=== PATIENT | female | born 1955 | race Caucasian/White ===

== ENCOUNTER 2025-05-01 13:50 | Outpatient (AMB) | payer MEDICARE, SELFPAY ==
[2025-05-01 14:17] VITALS: BMI 19.7
--- NOTE | 2025-05-01 14:17 | A.PHYSOV ---
Vital Signs 05/01/25 14:17 Height 5 ft 4 in Weight 115 lb BMI 19.7 Intake Visit Reasons: NPV self ref- neck pain Intake Note: Patient is a 69 year old female here for new patient office visit. Patient presents with Lower back pain. Patient states this pain is on the left side and does not travel. Patient states pain has been for 2 years and she has had treatment at the [facility] in [facility] for treatment. Anesthesiology Tech Required: No Allergies No Known Allergies Allergy (Verified 05/01/25 14:20) HPI Comments Details: History of Present Illness The patient is a 69 year old female presenting for evaluation and management of back pain. She reports having received injections at the [facility] approximately two years ago, which were unsuccessful. The patient's pain is localized to the left side of her thoracic back and does not radiate. She has no history of kidney stones. Her current medications include Tylenol and ibuprofen, and she has prescriptions for methocarbamol and diclofenac, though she does not require refills at this time. Patient did undergo 2 epidural injections without relief not performed in our office. She has a pain level today of 7/10 worse with activity. Patient has failed conservative treatment. I reviewed the referring provider's no prior to consultation. Pain Description - Location: Pain is on the left side, localized to the thoracic spine. - Character: The pain is described as being right in a specific spot. - Radiation: The pain does not wrap around. - Exacerbating Factors: Pain is elicited with rotation. - Alleviating Factors: None reported. Results - MRI lumbar spine (10/30/2023): - L3-L4: Moderate canal stenosis and mild bilateral neuroforaminal stenosis. - L4-L5: Mild canal stenosis and mild bilateral neuroforaminal stenosis with diffuse disc bulge and facet hypertrophy. - L5-S1: Mild left neuroforaminal stenosis from disc bulging and facet hypertrophy. - MRI thoracic spine (10/30/2023): - T10-T11: Broad-based disc bulge causing mild to moderate spinal canal stenosis. - T9-T10 and T10-T11: Mild neuroforaminal narrowing bilaterally. - Impression: Multilevel degenerative changes. [facility] Social History (Updated 05/01/25 @ 14:21 by Clara Piña MA) Alcohol intake: current Alcohol intake frequency: does not drink Patient Tobacco Use Status: Former Tobacco user Review of Systems Narrative Review of Systems - Musculoskeletal: Reports localized pain in the left thoracic back. - Genitourinary: Denies a history of kidney stones. - All other systems reviewed are negative. Physical Exam Exam Exam: Physical Exam - General: Patient is flexible. - Musculoskeletal/Spine: Tenderness to palpation over the left thoracic spine at approximately the T10 level. - Spinal range of motion is full with flexion and extension without eliciting pain. - Rotation elicits pain. - Respiratory: Chest rises and falls symmetrically. No scapular winging. Vital Signs: BMI result Body Mass Index 19.7 Assessment & Plan Assessment & Plan (1) Thoracic radiculopathy: Code(s): M54.14 - Radiculopathy, thoracic region Category: Medical (2) Thoracic spondylosis: Code(s): M47.814 - Spondylosis without myelopathy or radiculopathy, thoracic region Category: Medical Plan Pain Management - Affect: Not discussed. - Analgesia: The patient currently uses Tylenol and ibuprofen for pain and has prescriptions for methocarbamol and diclofenac, though she states she is trying not to take any medicine. - Adverse Effects: She notes that Tylenol can irritate her stomach. - Activities of Daily Living: The patient is noted to be flexible, but pain is produced with rotation. - Aberrant Drug Related Behaviors: None noted; the patient expresses a desire to minimize medication use. Plan Patient was informed and verbally consented to the use of an ambient scribe for clinic note documentation during this visit. 1. Thoracic Back Pain The patient's left-sided pain is localized to the thoracic spine, correlating with MRI findings of a broad-based disc bulge causing mild to moderate spinal canal stenosis and mild neuroforaminal narrowing at T10-11. Physical exam confirms tenderness at this level. A left T10-11 transforaminal injection will be ordered. The patient has opted for sedation during the procedure. For analgesia, Tylenol 500 mg will be prescribed to be taken three times a day, with the option to take two tablets for severe pain. She has been advised to avoid alcohol consumption with Tylenol. Gabapentin was discussed as a potential future option for nerve pain if current therapies are ineffective. The patient will follow-up in three weeks after the injection to assess for improvement. Discussion Notes I reviewed the patient's recent MRI findings of her thoracic and lumbar spine and explained that her symptoms of left-sided thoracic pain align with the findings at the T10-11 level, specifically the disc bulge and neuroforaminal narrowing. I recommended a left T10-11 transforaminal injection to target this area. I informed her that the procedure can be painful, as the needle is placed near the nerve root and can potentially tap the nerve, magnifying her pain temporarily. After discussion, she elected to receive sedation for the procedure. We discussed her current medication regimen, and I will prescribe Tylenol 500 mg for pain management, with instructions for use. I advised her to avoid alcohol while taking Tylenol due to stomach irritation. We agreed to hold her other medications for now. I informed the patient that our office will seek insurance authorization for the injection and will contact her for scheduling. A follow-up visit is scheduled for three weeks after the procedure to assess the outcome. Patient Instructions - We will schedule you for a left-sided T10-[address] Minor for your back pain. - You have chosen to be sedated ( put to sleep ) for the procedure for comfort. - Our office will get approval from your insurance and will then call you to schedule the appointment. - You can take Tylenol 500 mg for pain. - You may take one tablet every 6 to 8 hours, or two tablets up to three times a day if the pain is severe. - Do not drink alcohol while taking Tylenol, as it can be hard on your stomach. - We will have you follow up in the clinic three weeks after your injection to see how you are doing. Orders: Referrals Physiatry Procedure Notification M47.814 - Spondylosis without myelopathy or radiculopathy, thoracic region, M54.14 - Radiculopathy, thoracic region Coding Level of Care Code Tele New Pt Level 4 (70183) Diagnoses Thoracic radiculopathy M54.14 Thoracic spondylosis M47.814
--- OUTSIDE RECORDS SUMMARY | 2025-05-01 22:36 | XMS_ITS | Clinical Summary ---
Author Organization [facility] Address [address] [place] [address] Phone Care Team Providers Care Pre Owned Sales Consultant Name Role Phone Physician, Pcp Unknown Primary Care Provider Bridget vailable Allergies No known active allergies Medications ondansetron ODT (ZOFRAN-ODT) 4 mg disintegrating tablet Dissolve 1 tablet (4 mg total) on top of the tongue every 8 (eight) hours if needed for nausea or vomiting. 12 tablet 5 Active amoxicillin-clavul anate (AUGMENTIN) 875-125 mg per tablet Take 1 tablet by mouth every 12 (twelve) hours for 7 days. 14 tablet 5 04/24/20 25 loperamide (IMODIUM) 2 mg capsule Take 1 capsule (2 mg total) by mouth 4 (four) times a day if needed for diarrhea for up to 3 days. 12 capsule 5 04/20/20 25 Encounters Date Type Department Care Team Description 04/17/2025 9:13 AM EST - 04/17/2025 2:02 PM EST Emergency [facility] Emergency [address] [place] [address] Colitis (Primary Dx); Nausea vomiting and diarrhea; Hypomagnesemia Discharge Disposition: Home or Self Care from Last 3 Months Social History Tobacco Use Types Packs/Day Years Used Date Smoking Tobacco: Never Tobacco Cessation:Counseling Given: Not Answered Comments Unknown Sex and Gender Information Value Date Recorded Sex Assigned at Not on file Legal Sex Female 1:59 PM EDT Gender Identity Not on file Sexual Orientation Not on file Last Filed Vital Signs Vital Sign Reading Time Taken Comments Blood Pressure 138/84 04/17/2025 9:47 AM EST Pulse 84 04/17/2025 1:58 PM EST Temperature 36.7 C (98 F) 04/17/2025 1:58 PM EST Respiratory Rate 18 04/17/2025 1:58 PM EST Oxygen Saturation 100% 04/17/2025 1:58 PM EST Inhaled Oxygen Concentration - - Weight 68 kg (150 lb) 04/17/2025 9:12 AM EST Height 162.6 cm (5' 4 ) 04/17/2025 9:12 AM EST Body Mass Index 25.75 04/17/2025 9:12 AM EST Plan of Treatment Upcoming Encounters Date Type Department Care Team (Late st Contact Info) Description 07/27/2025 3:00 PM EST Office Visit Internal Medicine - [place] [address] [place] [address] Azra Guzmán MD [address] [place] [address] Health Maintenance Due Date Last Done Comments Breast Cancer Screening 1955 Colorectal Cancer Screening: Colonoscopy 1955 DTaP,Tdap,and Td Vaccines (1 - Tdap) 1976 Pneumococcal Vaccine: 50+ Ye ars (1 of 1 - PCV) 10/12/2007 Zoster Vaccines (1 of 2) 10/12/2007 Depression Screening 05/25/2024 COVID-19 Vaccine (1 - 2024-2 6 season) 2025 Influenza Vaccine (#1) 2025 Falls Risk Assessment 03/14/2025 Hepatitis C Screening 03/14/2025 Medicare Annual Wellness Visit 03/14/2025 Osteoporosis Screening (Bone Density Screening) 03/14/2025 Social Influencers of Health Screening 03/14/2025 RSV Immunization Adult Patie nts (1 - 1-dose 75+ series) 2032 HIB Vaccines Aged Out No longer eligi ble based on patient's age to complete this topic HPV Vaccines Aged Out No longer eligi ble based on patient's age to complete this topic Hepatitis A Vaccines Aged Out No long er eligible based on patient's age to complete this topic Hepatitis B Vaccines Aged Out No long er eligible based on patient's age to complete this topic IPV Vaccines Aged Out No longer eligi ble based on patient's age to complete this topic MMR Vaccines Aged Out No longer eligi ble based on patient's age to complete this topic Meningococcal ACWY Vaccine Aged Out N o longer eligible based on patient's age to complete this topic Meningococcal B Vaccine Aged Out No l onger eligible based on patient's age to complete this topic RSV Immunization Patients Un jesusita 20 months Aged Out No longer eligible b ased on patient's age to complete this topic Varicella Vaccines Aged Out No longer eligible based on patient's age to complete this topic Procedures Procedure Name Priority Date/Time Associated Diagnosis Comments CT ABDOMEN PELVIS W CONTRAST STAT 04/17/2025 12:59 PM EST MAGNESIUM STAT 04/17/2025 11:36 AM EST LIPASE STAT 04/17/2025 11:36 AM EST COMPREHENSIVE METABOLIC PANEL STAT 04/17/2025 11:36 AM EST URINALYSIS WITH REFLEX MICROSCOPIC STAT 04/17/2025 9:50 AM EST URINALYSIS WITH REFLEX MICROSCOPIC STAT 04/17/2025 9:50 AM EST CBC WITH AUTO DIFFERENTIAL STAT 04/17/2025 9:47 AM EST LACTATE, WITH REFLEX STAT 04/17/2025 9:47 AM EST CBC AND DIFFERENTIAL STAT 04/17/2025 9:47 AM EST from Last 3 Months Results * CT Abdomen Pelvis w Contrast (04/17/2025 12:59 PM EST) Anatomical Region Laterality Modality Body Computed Tomogra phy 04/17/2025 1:04 PM EST Impressions 04/17/2025 1:14 PM EST Infectious or inflammatory enterocolitis. No abscess or free air. -------- FINAL REPORT -------- Dictated By: JUANA GAMBOA Dictated Date: 04/17/2025 13:04 ET Assigned Physician: JUANA GAMBOA Reviewed and Electronically Signed By: JUANA GAMBOA Signed Date: 04/17/2025 13:14 ET Workstation ID: [id number] Transcribed By: Self Edit Transcribed Date: 04/17/2025 13:04 ET Narrative 04/17/2025 1:14 PM EST PROCEDURE: CT ABDOMEN/PELVIS INDICATION: Pain TECHNIQUE: CT of the abdomen and pelvis following the intravenous administration of 90cc Isovue 370. Multiplanar reformats. The examination was performed utilizing dose reduction techniques. Total DLP 371 COMPARISON: No priors available. FINDINGS: LOWER THORAX: Bibasilar atelectasis. HEPATOBILIARY: No focal liver lesions. No cholelithiasis or biliary duct dilatation. SPLEEN: No splenomegaly. PANCREAS: No focal mass or ductal dilatation. ADRENALS: No nodules. KIDNEYS/URETERS: No hydronephrosis, stones, or solid mass. PELVIC ORGANS/BLADDER: Hysterectomy. Bladder is decompressed. No adnexal mass or pelvic lymphadenopathy. PERITONEUM / RETROPERITONEUM: No ascites, fluid collection, or free air. No retroperitoneal lymphadenopathy. VESSELS: Portal vein is patent. Abdominal aorta is normal in size. GI TRACT: Wall thickening throughout the duodenum, small bowel, and at the proximal colon. Normal appendix. Postoperative changes at the gastric antrum. No bowel obstruction. BONES AND SOFT TISSUES: Right hip arthroplasty. Superficial soft tissues are within normal limits. Degenerative changes throughout the spine. Procedure Note Juana Gamboa MD - 04/17/2025 PROCEDURE: CT ABDOMEN/PELVIS INDICATION: Pain TECHNIQUE: CT of the abdomen and pelvis following the intravenousadministration of 90cc Isovue 370. Multiplanar reformats. The examinationwas performed utilizing dose reduction techniques. Total DLP 371 COMPARISON: No priors available. FINDINGS: LOWER THORAX: Bibasilar atelectasis. HEPATOBILIARY: No focal liver lesions. No cholelithiasis or biliary ductdilatation. SPLEEN: No splenomegaly. PANCREAS: No focal mass or ductal dilatation. ADRENALS: No nodules. KIDNEYS/URETERS: No hydronephrosis, stones, or solid mass. PELVIC ORGANS/BLADDER: Hysterectomy. Bladder is decompressed. No adnexalmass or pelvic lymphadenopathy. PERITONEUM / RETROPERITONEUM: No ascites, fluid collection, or free air.No retroperitoneal lymphadenopathy. VESSELS: Portal vein is patent. Abdominal aorta is normal in size. GI TRACT: Wall thickening throughout the duodenum, small bowel, and at theproximal colon. Normal appendix. Postoperative changes at the gastricantrum. No bowel obstruction. BONES AND SOFT TISSUES: Right hip arthroplasty. Superficial soft tissuesare within normal limits. Degenerative changes throughout the spine. IMPRESSION: Infectious or inflammatory enterocolitis. No abscess or free air. -------- FINAL REPORT -------- Dictated By: JUANA GAMBOA Dictated Date: 04/17/2025 13:04 ET Assigned Physician: JUANA GAMBOA Reviewed and Electronically Signed By: JUANA GAMBOA Signed Date: 04/17/2025 13:14 ET Workstation ID: [id number] Transcribed By: Self Edit Transcribed Date: 04/17/2025 13:04 ET [address] [facility] IMG CT PROCEDURES Final Resu lt * (ABNORMAL) Magnesium (04/17/2025 11:36 AM EST) [facility] Magnesium 1.6(L) 1.9 - 2.6 mg/dL 04/17/2025 12:39 PM EST [facility] Blood Venous blood specimen / Unknown Venipuncture / Unknown 04/17/2025 11:36 AM EST 04/17/2025 12:02 PM EST [facility] BLOOD ORDERABLES Final R esult [facility] [address] [place] [address], * Lipase (04/17/2025 11:36 AM EST) [facility] Lipase 27 12 - 53 unit/L 04/17/2025 12:[address] [facility] Blood Venous blood specimen / Unknown Venipuncture / Unknown 04/17/2025 11:36 AM EST 04/17/2025 12:02 PM EST us Alex [facility] BLOOD ORDERABLES Final R esult [facility] [address] [place] [address], * (ABNORMAL) Comprehensive metabolic panel (04/17/2025 11:36 AM EST) Sodium 140 133 - 145 mmol/L 04/17/2025 12:[address] [facility] Potassium 3.8 3.5 - 5.5 mmol/L 04/17/2025 12:[address] [facility] Chloride 103 96 - 110 mmol/L 04/17/2025 12:[address] [facility] CO2 26 21 - 32 mmol/L 04/17/2025 12:[address] [facility] Anion Gap 11 3 - 11 04/17/2025 12:[address] [facility] Glucose 84 70 - 100 mg/dL 04/17/2025 12:[address] [facility] BUN 22 5 - 25 mg/dL 04/17/2025 12:[address] [facility] Creatinine 1.04 0.50 - 1.10 mg/dL 04/17/2025 12:[address] [facility] eGFR 59(L) >=60 mL/min/1. 73m2 04/17/2025 12:[address] [facility] Comment:Calculation based on the Chronic Kidney Disease Epidemiology Collaboration (CKD-EPI) equation refit without adjustment for race. BUN/Creatinine Ratio 21.2 04/17/2025 12:[address] [facility] Calcium 8.6 8.5 - 10.5 mg/dL 04/17/2025 12:[address] [facility] AST (SGOT) 36 10 - 42 unit/L 04/17/2025 12:[address] [facility] ALT (SGPT) 17 10 - 60 unit/L 04/17/2025 12:[address] [facility] Alkaline Phosphatase 88 42 - 121 unit/L 04/17/2025 12:[address] [facility] Total Protein 5.6(L) 6.0 - 8.0 g/dL 04/17/2025 12:[address] [facility] Albumin 3.4 3.2 - 5.0 g/dL 04/17/2025 12:[address] [facility] Total Bilirubin 0.3 0.0 - 1.4 mg/dL 04/17/2025 12:[address] [facility] Blood Venous blood specimen / Unknown Venipuncture / Unknown 04/17/2025 11:36 AM EST 04/17/2025 12:02 PM EST us [facility] BLOOD ORDERABLES Final R esult [facility] [address] [place] [address], * (ABNORMAL) Urinalysis with reflex microscopic (04/17/2025 9:50 AM EST) Specific Hasty Urine 1.027 1.003 - 1.030 LAB URINALYSIS - AUTOMATED METHOD 04/17/2025 10:[address] [facility] pH, Urine 6.0 5.0 - 8.0 pH LAB URINALYSIS - AUTOMATED METHOD 04/17/2025 10:[address] [facility] Leukocytes, Urine Trace(A) Negative LAB URINALYSIS - AUTOMATED METHOD 04/17/2025 10:[address] [facility] Nitrite, Urine Negative Negative LAB URINALYSIS - AUTOMATED METHOD 04/17/2025 10:[address] [facility] Protein, Urine 300(A) <=Trace mg/dL LAB URINALYSIS - AUTOMATED METHOD 04/17/2025 10:[address] [facility] Glucose, Urine Negative Negative mg/dL LAB URINALYSIS - AUTOMATED METHOD 04/17/2025 10:[address] [facility] Ketones, Urine 15(A) Negative mg/dL LAB URINALYSIS - AUTOMATED METHOD 04/17/2025 10:[address] [facility] Urobilinogen , Urine 1.0 0.2 - 1.0 mg/dL LAB URINALYSIS - AUTOMATED METHOD 04/17/2025 10:[address] [facility] Bilirubin, Urine Small(A) Negative LAB URINALYSIS - AUTOMATED METHOD 04/17/2025 10:[address] [facility] Blood, Urine Negative Negative LAB URINALYSIS - AUTOMATED METHOD 04/17/2025 10:[address] [facility] RBC, Urine 2 0 - 4 /HPF 04/17/2025 10:[address] [facility] WBC, Urine 10(H) 0 - 4 /HPF 04/17/2025 10:[address] [facility] Squamous Epithelial, Urine 10 0 - 60 /LPF 04/17/2025 10:[address] [facility] Crystals, Urine Light Calcium Oxalate crystals. /LPF 04/17/2025 10:[address] [facility] Bacteria, Urine Few(A) Negative /HPF 04/17/2025 10:[address] [facility] Hyaline Casts, Urine 4(H) 0 - 3 /LPF 04/17/2025 10:[address] [facility] Urine Urine specimen obtained by clean catch procedure / Unknown Non-blood Collection / Unknown 04/17/2025 9:50 AM EST 04/17/2025 9:59 AM EST us [facility] URINE ORDERABLES Final R esult Performing Organization Address City/[facility]/ZIP Co de Phone Number [facility] [address] [place] [address], [place] [phone] * Lactate, with reflex (04/17/2025 9:47 AM EST) LACTIC ACID 1.7 0.4 - 2.0 mmol/L 04/17/2025 10:[address] [facility] Blood Venous blood specimen / Unknown Venipuncture / Unknown 04/17/2025 9:47 AM EST 04/17/2025 9:59 AM EST us [facility] BLOOD ORDERABLES Final R esult Performing Organization Address City/[facility]/ZIP Co de Phone Number [facility] [address] [place] [address], [place] [phone] * (ABNORMAL) CBC auto differential (04/17/2025 9:47 AM EST) Pathologist [facility] WBC 6.7 4.8 - 10.8 K/mcL LAB HEMETOLOGY METHOD 04/17/2025 10:[address] [facility] RBC 4.90(H) 3.80 - 4.80 M/mcL LAB HEMETOLOGY METHOD 04/17/2025 10:[address] [facility] Hemoglobin 14.8 11.5 - 16.0 g/dL LAB HEMETOLOGY METHOD 04/17/2025 10:[address] [facility] Hematocrit 43.8 35.0 - 47.0 % LAB HEMETOLOGY METHOD 04/17/2025 10:[address] [facility] MCV 89.2 79.0 - 98.0 FL LAB HEMETOLOGY METHOD 04/17/2025 10:[address] [facility] MCH 30.1 27.0 - 32.0 pcg LAB HEMETOLOGY METHOD 04/17/2025 10:[address] [facility] MCHC 33.8 32.0 - 37.0 g/dL LAB HEMETOLOGY METHOD 04/17/2025 10:[address] [facility] RDW 12.8 11.0 - 15.0 % LAB HEMETOLOGY METHOD 04/17/2025 10:[address] [facility] Platelets 278 130 - 400 K/mcL LAB HEMETOLOGY METHOD 04/17/2025 10:[address] [facility] MPV 9.5 7.0 - 11.0 FL LAB HEMETOLOGY METHOD 04/17/2025 10:[address] [facility] NRBC 0.0 <1.0 % LAB HEMETOLOGY METHOD 04/17/2025 10:[address] [facility] NRBC Absolute 0.00 <0.10 K/mcL LAB HEMETOLOGY METHOD 04/17/2025 10:[address] [facility] Neutrophils Relative 75.9 % LAB HEMETOLOGY METHOD 04/17/2025 10:[address] [facility] Lymphocytes Relative 13.8 % LAB HEMETOLOGY METHOD 04/17/2025 10:[address] [facility] Monocytes Relative 9.2 % LAB HEMETOLOGY METHOD 04/17/2025 10:[address] [facility] Eosinophils Relative 0.3 % LAB HEMETOLOGY METHOD 04/17/2025 10:[address] [facility] Basophils Relative 0.5 % LAB HEMETOLOGY METHOD 04/17/2025 10:[address] [facility] Immature Granulocytes Relative 0.3 % LAB HEMETOLOGY METHOD 04/17/2025 10:03 AM EST [facility] Neutrophils Absolute 5.05 1.50 - 7.00 K/mcL LAB HEMETOLOGY METHOD 04/17/2025 10:[address] [facility] Lymphocytes Absolute 0.92(L) 1.00 - 5.00 K/mcL LAB HEMETOLOGY METHOD 04/17/2025 10:03 AM EST [facility] Monocytes Absolute 0.61 0.20 - 1.00 K/mcL LAB HEMETOLOGY METHOD 04/17/2025 10:[address] [facility] Eosinophils Absolute 0.02 0.00 - 0.50 K/mcL LAB HEMETOLOGY METHOD 04/17/2025 10:[address] [facility] Basophils Absolute 0.03 0.00 - 0.20 K/mcL LAB HEMETOLOGY METHOD 04/17/2025 10:03 AM [facility] Immature Granulocytes Absolute 0.02 0.00 - 0.03 K/mcL LAB HEMETOLOGY METHOD 04/17/2025 10:03 AM [facility] Blood Venous blood specimen / Unknown Venipuncture / Unknown 04/17/2025 9:47 AM EST 04/17/2025 9:59 AM EST us [facility] BLOOD ORDERABLES Final R esult [facility] [address] [place] [address], [place] [phone] from Last 3 [place] [id number] [place] [id number] [place] [address] [place] [address] Care Teams Pre Owned Sales Consultant Relationship Specialty Start Date End Date Physician, Pcp Unknown PCP - General 04/17/25
--- OUTSIDE RECORDS SUMMARY | 2025-05-01 22:36 | XMS_ITS | Patient Health Record ---
Author Organization [facility] Address [address] [place] [address] Care Team Providers Care Lead Machinist Name Role Phone AriasKain Primary Care Provider Jim Sellers Unavailable [phone] Ramona Arita MD Unavailable Reason For Referral No Information Medications Medication SIG (Take, Route, Frequency, Duration) Notes Start Date End Date Status Zoloft 100 MG Tablet 1 tablet Orally Once a day Active Azmacort cream as directed/as needed Active Thalomid 50 MG Capsule Orally Active Meloxicam 15 MG Tablet 1 tablet Orally O nce a day; Duration: 30 day(s) 05/29/2015 Active Relpax 40 MG Tablet 1 tablet Orally prn migraine Active Zestril 20 MG Tablet 1 tablet Orally Once a day Active Treximet 85-500 MG Tablet 1 tablet Orall y prn migraine Active Ultram 50 MG Tablet 1 tablet Orally prn Active Premarin 0.625 MG/GM Cream Vaginal Active Social History Social History Drugs/Alcohol: Social Info Question Answer Notes Drugs- Has the patient used drugs other than those for medical reasons in the past 12 months? 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 Tobacco Use: Tobacco Use/Smoking Are you a: former smoker , How long has it been since you last smoked?: 1-5 years Problems Problem Type SNOMED Code ICD Code Onset Dates Problem Status W/U Status Risk Notes Problem Cervical spondylosis without myelopathy (696011302) Cervical spondylosis without myelopathy (721.0) Active confirmed Problem Occipital neuralgia (71534284) Occipital neuralgia (723.8) Active confirmed Problem Chronic intractable migraine without aura (385776341315755 ) Intractable chronic migraine without aura (346.71) Active confirmed Problem Cervical spondylosis without myelopathy (236426310) Cervical spondylosis without myelopathy (M47.812) Active confirmed Problem Refractory migraine with aura (855390758) Migraine aura, persistent, intractable (G43.519) Active confirmed Plan Of Treatment Pending Test Test Name Order Date MRI : Cervical without Contrast 12/27/19 15 Occipital nerve block 10/26/2014 Future Test Test Name Order Date Cervicothoracic facet block 03/02/2015 Insurance Providers Payer Name Payer Address Payer Phone Subscriber Number Group Number Insured Name Patient Relationship to Insured Coverage Start Date Coverage End Date [facility] [address] [place] [address] [phone] [id number] Zayra Sánchez Self - patient is the insured 3 Medical (General) History Medical History History ICD Code Migraine without aura, not intractable, without status migrainosus G43.009 Headache R51 Hypertension I10 Peptic ulcer, site unspecifi ed, unspecified as acute or chronic, without hemorrhage or perforation K27.9 Helicobacter pylori [H. pylo ri] as the cause of diseases classified elsewhere B96.81 Surgical History Surgery Date(Month/Year) hysterectomy (R) shoulder 1987 (R) shoulder arthroscopic 2010 (L) shoulder arthroscopic 2012 pylori resection 2014
== END 2025-05-01 14:40 | disposition home or self-care (01) ==
LOC: HO.HPHYS 13:51
PROVIDERS: Visit Provider Physician Assistant
DX: M54.14 Radiculopathy, thoracic region (principal); M47.814 Spondylosis without myelopathy or radiculopathy, thoracic region
CPT/HCPCS: 99204

== ENCOUNTER → 2025-05-01 13:50 | Outpatient (BNVA) | payer SELFPAY | PROVIDERS: Visit Provider Physician Assistant | DX: M47.814 Spondylosis without myelopathy or radiculopathy, thoracic region (principal); M54.14 Radiculopathy, thoracic region | CPT/HCPCS: 99202 ==